=== PATIENT | male | born 1970 | race Caucasian/White ===

== ENCOUNTER → 2018-03-12 | Outpatient (CLI) | payer OTHER ==
--- NOTE | 2018-03-12 15:08 | US ---
EXAMINATION TYPE: US abdomen complete DATE OF EXAM: 03/12/2018 COMPARISON: NONE CLINICAL HISTORY: 47-year-old male R60.0Localized edema I71.2Thoracic aortic aneurysm. Thoracic aorti c aneurysm TECHNIQUE: Multiple sonographic images of the abdomen were obtained. FINDINGS: DIRECTOR OF INFECTION PREVENTION NOTES: Technical limitations due to large amount of overlying bowel content EXAM MEASUREMENTS: Liver Length: 13.3 cm Gallbladder Wall: 0.3 cm CBD: 0.4 cm Spleen: 13.9 cm Right Kidney: 11.2 x 5.6 x 4.9 cm Left Kidney: 11.8 x 5.3 x 5.5 cm Pancreas: Obscured by bowel gas Liver: appears wnl Gallbladder: no evidence of stones Evidence for sonographic Hines's sign: no CBD: appears wnl Spleen: Borderline enlarged. Right Kidney: no evidence of hydronephrosis Left Kidney: no evidence of hydronephrosis Upper IVC: wnl Abd Aorta: visualized portions appear wnl, proximal obscured by bowel IMPRESSION: 1. Borderline splenomegaly (13.9 cm). 2. Suboptimal visualization of the pancreas. Otherwise, unremarkable sonographic examination of the a bdomen.
--- NOTE | 2018-03-12 15:09 | US ---
EXAMINATION TYPE: US venous doppler duplex LE LT DATE OF EXAM: 03/12/2018 1:45 PM COMPARISON: NONE CLINICAL HISTORY: 47-year-old male R60.0Localized edema I71.2Thoracic aortic aneurysm. Intermittent l eft leg edema x 2 years SIDE PERFORMED: left TECHNIQUE: The lower extremity deep venous system is examined utilizing real time linear array sonog greg with graded compression, doppler sonography and color-flow sonography. FINDINGS: VESSELS IMAGED: External Iliac Vein (EIV) Common Femoral Vein Deep Femoral Vein Greater Saphenous Vein * Femoral Vein Popliteal Vein Small Saphenous Vein * Proximal Calf Veins (* superficial vessels) Left Leg: No evidence of DVT IMPRESSION: No evidence for DVT within the left lower extremity imaged from the groin to the upper calf.
== END | disposition home or self-care (01) ==
LOC: RADUSWWP 12:59
PROVIDERS: ATTEND Family Medicine
DX: R16.1 Splenomegaly, not elsewhere classified (principal); R60.0 Localized edema
CPT/HCPCS: 76700

== ENCOUNTER → 2020-03-24 | Outpatient (CLI) | payer OTHER ==
--- NOTE | 2020-03-24 16:54 | XR ---
EXAMINATION TYPE: XR cervical spine comp DATE OF EXAM: 03/24/2020 TECHNIQUE: Frontal, lateral, oblique, and open mouth view of the cervical spine are obtained. HISTORY: M54.12. Left side neck pain when turning head. COMPARISON: None FINDINGS: The cervical spine is visualized in its entirety from C1 through the C7 level. Normal alig nment without evidence of acute fracture or dislocation. There is mild anterior spurring and uncovert ebral hypertrophy of C3-C6. Mild disc space narrowing at C3-C4. The pre-vertebral soft tissue appears within normal limits. Neural foramina demonstrate multilevel bilateral bony encroachment worst at C4 -5 and C5-6. The dens and lateral masses are within normal limits on the open mouth view. IMPRESSION: 1. No acute fracture or dislocation is seen in the cervical spine. 2. Degenerative changes as above.
== END | disposition home or self-care (01) ==
LOC: RADXRMAIN 15:46
PROVIDERS: ATTEND Family Medicine
DX: R42 Dizziness and giddiness (principal); M47.812 Spondylosis without myelopathy or radiculopathy, cervical region
CPT/HCPCS: 72050

== ENCOUNTER → 2020-04-30 | Outpatient (CLI) | payer OTHER ==
--- NOTE | 2020-05-01 08:31 | MR ---
EXAMINATION TYPE: MR cervical spine wo con DATE OF EXAM: 04/30/2020 COMPARISON: None HISTORY: Stiffness, pain CONTRAST: Performed utilizing 0 mL intravenous Gadavist gadolinium contrast. TECHNIQUE: Multiplanar multiecho imaging on a 3.0 Melina magnet is performed through the cervical spin e. FINDINGS: The craniovertebral junction is normal. Vertebral body alignment is normal. C7-T1: No focal disc herniation or significant disc bulge is evident. No spinal canal stenosis is p resent. There is some uncovertebral joint hypertrophy contributing to left foraminal stenosis. C6-7: There is central focal bulging with moderate anterior thecal sac compression. Cord contact is e vident. Minimal cord deformity is not excluded. Disc material may extend beyond the endplate of C6 co mpatible with subligamentous herniation. Uncovertebral joint hypertrophy is present with moderate saeed ateral foraminal stenosis, greater on the right.. C5-6: There is a small central protrusion with moderate anterior thecal sac compression. This is in c lose approximation with the spinal cord. No spinal canal stenosis is evident. Uncovertebral joint hyp ertrophy is present with mild bilateral foraminal stenosis.. C4-5: No focal disc herniation or significant disc bulge is evident. No spinal canal stenosis or anjelica ral foraminal stenosis is present. C3-4: No focal disc herniation or significant disc bulge is evident. No spinal canal stenosis or anjelica ral foraminal stenosis is present. C2-3: No focal disc herniation or significant disc bulge is evident. No spinal canal stenosis or anjelica ral foraminal stenosis is present. IMPRESSIONS: 1. Subligamentous disc herniation C6-7 extending beyond the inferior endplate of C6. This has moderat e anterior thecal sac compression and some cord contact without definite cord deformity. No stenosis is present. 2. Central protrusion C5-6 with moderate anterior thecal sac compression. No AP spinal canal stenosis is present. 3. Multilevel uncovertebral joint hypertrophy contributing to foraminal narrowing discussed above.
== END | disposition home or self-care (01) ==
LOC: RADMRIMAIN 08:06
PROVIDERS: ATTEND Family Medicine
DX: M48.02 Spinal stenosis, cervical region (principal); M48.03 Spinal stenosis, cervicothoracic region; M50.222 Other cervical disc displacement at C5-C6 level
CPT/HCPCS: 72141

== ENCOUNTER → 2022-02-08 | Outpatient (CLI) | payer OTHER ==
--- NOTE | 2022-02-08 15:39 | US ---
EXAMINATION TYPE: US venous doppler duplex LE RT DATE OF EXAM: 02/08/2022 2:39 PM COMPARISON: NONE CLINICAL HISTORY: M79.661 PAIN RT LOWER LIMB, R22.41 SWELLING RT LOWER LIMB. Pain in leg. No hx of DV T. Patient does not take blood thinners. SIDE PERFORMED: Right TECHNIQUE: The lower extremity deep venous system is examined utilizing real time linear array sonog greg with graded compression, doppler sonography and color-flow sonography. VESSELS IMAGED: Common Femoral Vein Deep Femoral Vein Greater Saphenous Vein * Femoral Vein Popliteal Vein Small Saphenous Vein * Proximal Calf Veins (* superficial vessels) Right Leg: Duplicate proximal femoral vein noted. No evidence of DVT in veins imaged at this time. IMPRESSION: 1. Right lower extremity ultrasound negative for deep venous thrombosis.
== END | disposition home or self-care (01) ==
LOC: RADUSWWP 14:17
PROVIDERS: ATTEND Internal Medicine
DX: M79.661 Pain in right lower leg (principal); R22.41 Localized swelling, mass and lump, right lower limb

== ENCOUNTER → 2022-06-13 | Outpatient (CLI) | payer OTHER ==
--- NOTE | 2022-06-14 09:32 | MR ---
EXAMINATION TYPE: MR knee RT wo con DATE OF EXAM: 06/13/2022 COMPARISON: Outside right knee x-ray April 20, 2022 HISTORY: Right knee pain and swelling x 2 years, no trauma. TECHNIQUE: Multiplanar, multisequence imaging of the right knee is performed without IV contrast. FINDINGS: MEDIAL MENISCUS: Fraying and increased signal posterior horn extends to inferior articular surface. LATERAL MENISCUS: Anterior and posterior horns are intact without tear. CRUCIATE LIGAMENTS: The anterior and posterior cruciate ligaments are intact and unremarkable. COLLATERAL LIGAMENTS: The medial collateral ligament and lateral collateral ligament complex are inta ct and unremarkable. EXTENSOR MECHANISM: Visualized quadriceps and patellar tendons are intact. EFFUSION: Small to borderline moderate sized suprapatellar joint effusion. POPLITEAL CYST: Tiny amount of ill-defined fluid at level of popliteal fossa. No focal cyst. TRICOMPARTMENT SPACES: Mild tricompartment joint space loss and spurring. CARTILAGE: Focal chondromalacia patella with fissuring posterior patellar pole sagittal image 20 amanda g the medial aspect. Cartilaginous loss medial tibial femoral compartment. BONE MARROW SIGNAL: No focal abnormal marrow signal is appreciated. OTHER: No additional significant abnormality is appreciated. IMPRESSION: 1. Full-thickness tear posterior horn medial meniscus. 2. Mild to moderate tricompartment degenerative changes as detailed above. 3. Small to borderline moderate size suprapatellar joint effusion. 4. Ruptured tiny popliteal cyst suspected.
== END | disposition home or self-care (01) ==
LOC: RADMRIMAIN 18:04
PROVIDERS: ATTEND Orthopaedic Surgery
DX: S83.241A Other tear of medial meniscus, current injury, right knee, initial encounter (principal); M17.11 Unilateral primary osteoarthritis, right knee

== ENCOUNTER 2023-01-15 11:07 | Emergency (ER) | payer OTHER ==
[2023-01-15 11:11] VITALS: TEMP 97.3
[2023-01-15 11:51] LABS: Basophils % (A) 1 %; Eosinophils # (A) 0.2 k/uL (0-0.7); Eosinophils % (A) 3 %; HCT 45.7 % (39.0-53.0); HGB 16.1 gm/dL (13.0-17.5); Lymphocytes # (A) 1.6 k/uL (1.0-4.8); Lymphocytes % (A) 21 %; MCH 31.5 pg (25.0-35.0); MCHC 35.3 g/dL (31.0-37.0); MCV 89.3 fL (80.0-100.0); Mean Platelet Volume 8.1; Monocytes # (A) 0.5 k/uL (0-1.0); Monocytes % (A) 6 %; Neutrophils # (A) 5.2 k/uL (1.3-7.7); Neutrophils % (A) 68 %; Platelet Count 213 k/uL (150-450); RBC 5.12 m/uL (4.30-5.90); RDW 11.9 % (11.5-15.5); WBC 7.7 k/uL (3.8-10.6)
[2023-01-15 11:52] LABS: INR 0.9 (<1.2); Partial Thromboplastin Time 24.6 sec (22.0-30.0); Prothrombin Time 9.9 sec (9.0-12.0)
[2023-01-15 11:58] LABS: ALT 32 U/L (4-49); AST 34 U/L (17-59); African American GFR (CKD) >90 (>60 ml/min/1.73 sqM); Albumin 4.5 g/dL (3.5-5.0); Alkaline Phosphatase 95 U/L (38-126); Anion Gap 14 mmol/L; Blood Urea Nitrogen 16 mg/dL (9-20); Calcium 9.3 mg/dL (8.4-10.2); Carbon Dioxide 23 mmol/L (22-30); Chloride 101 mmol/L (98-107); Glucose 122 mg/dL (74-99); Non-African American GFR(CKD) 86 (>60 ml/min/1.73 sqM); Potassium 4.2 mmol/L (3.5-5.1); Sodium 138 mmol/L (137-145); Total Bilirubin 0.8 mg/dL (0.2-1.3); Total Protein 7.4 g/dL (6.3-8.2)
[2023-01-15] MEDS ORDERED: SODIUM CHLORIDE 0.9% 1,000 ML IV ONE (11:59)
--- NOTE | 2023-01-15 12:06 | ED ---
General Adult HPI - General Chief complaint: Chest Pain Stated complaint: Chest Pain Time Seen by Provider: 01/15/23 11:46 Source: patient, RN notes reviewed Mode of arrival: ambulatory Limitations: no limitations - History of Present Illness Initial comments: 52-year-old male with no significant past medical history presents to the emergency department with a chief complaint of near syncope. Patient reports he has had multiple bouts of feeling like he is going to pass out over the last 6 weeks. He reports last 2 days these near syncopal episodes have increased. He reports simultaneous symptoms of chest pain, dizziness, lightheadedness that will last a few seconds and will resolve on its own. He denies attempting symptoms of vision changes, vision loss, headache, cough, nausea, vomiting. He does report he is a half a pack smoker. Denies heavy alcohol use, illicit drug use. He reports that his father has atrial fibrillation - Related Data Home Medications Medication Instructions Recorded Confirmed No Known Home Medications 01/15/23 01/15/23 Allergies Allergy/AdvReac Type Severity Reaction Status Date / Time No Known Allergies Allergy Verified 01/15/23 13:25 Review of Systems ROS Statement: Those systems with pertinent positive or pertinent negative responses have been documented in the HPI. ROS Other: All systems not noted in ROS Statement are negative. Past Medical History Past Medical History: GERD/Reflux Additional Past Medical History / Comment(s): POSSIBLE DIVERTICULOSIS. Hernia, Aortic aneurysm History of Any Multi-Drug Resistant Organisms: None Reported Past Surgical History: No Surgical Hx Reported Past Anesthesia/Blood Transfusion Reactions: No Reported Reaction Additional Past Anesthesia/Blood Transfusion Reaction / Comment(s): HAS NEVER RECEIVED ANESTHESIA Past Psychological History: No Psychological Hx Reported Smoking Status: Current every day smoker Past Alcohol Use History: Occasional Past Drug Use History: None Reported - Past Family History Father Family Medical History: AFIB General Exam - General Exam Comments Initial Comments: General: Alert, in no acute distress Head: atraumatic normocephalic. Eyes PERRL, EOMI intact, mucous membranes moist Respiratory: Lungs clear to auscultation bilaterally Cardiovascular: Heart rate regular rate and rhythm Abdominal: Soft without guarding or rebound Extremities: Normal inspection with full range of motion and normal capillary refill Neuroogic: alert and oriented 3, CN II-XII intact, able to ambulate with steady gait Skin: warm dry and intact with normal color Limitations: no limitations Course Vital Signs 01/15/23 01/15/23 01/15/23 11:08 12:59 14:33 Temperature 97.3 F L Pulse Rate 92 85 73 Respiratory 20 16 18 Rate Blood Pressure 139/101 144/92 129/89 O2 Sat by Pulse 99 96 97 Oximetry - Reevaluation(s) Reevaluation #1: 01/15/23 13:43 Patient reevaluated and updated on results. Patient reports resolution of symptoms at this time. EKG Findings - EKG Comments: EKG Findings:: I interpreted the following: EKG performed at 11:15 rate 81 bpm normal sinus rhythm MD interval 151, QRS duration 90, QT/QTC 348/385 Medical Decision Making - Medical Decision Making Was pt. sent in by a medical professional or institution (FRANK Cristina, ABORIGINAL LIAISON OFFICER, urgent care, hospital, or assisted...) When possible be specific @ -[No] Did you speak to anyone other than the patient for history (EMS, parent, family, police, friend...)? What history was obtained from this source @ -[No] Did you review nursing and triage notes (agree or disagree)? Why? @ -[I reviewed and agree with nursing and triage notes] Were old charts reviewed (outside hosp., previous admission, EMS record, old EKG, old radiological studies, urgent care reports/EKG's, assisted records)? Report findings @ -[No old charts were reviewed] Differential Diagnosis (chest pain, altered mental status, abdominal pain women, abdominal pain men, vaginal bleeding, weakness, fever, dyspnea, syncope, head ache, dizziness, GI bleed, back pain, seizure, CVA, palpatations, mental health, musculoskeletal)? @ -[not applicable] EKG interpreted by me (3pts min.). @ -[As above] X-rays interpreted by me (1pt min.). @ -[None done] CT interpreted by me (1pt min.). @ -[None done] U/S interpreted by me (1pt. min.). @ -[None done] What testing was considered but not performed or refused? (CT, X-rays, U/S, labs)? Why? @ -[None] What meds were considered but not given or refused? Why? @ -[None] Did you discuss the management of the patient with other professionals (professionals i.e. , PA, ABORIGINAL LIAISON OFFICER, lab, RT, psych nurse, protective services social worker, pricing intern, t eacher, contracts officer, shoe caser)? Give summary @ -[No] Was smoking cessation discussed for >3mins.? @ -[No] Was critical care preformed (if so, how long)? @ -[No] Were there social determinants of health that impacted care today? How? (Homelessness, low income, unemployed, alcoholism, drug addiction, transportation, low edu. Level, literacy, decrease access to med. care, shelter, r ehab)? @ -[No] Was there de-escalation of care discussed even if they declined (Discuss DNR or withdrawal of care, Hospice)? DNR status @ -[No] What co-morbidities impacted this encounter? (DM, HTN, Smoking, COPD, CAD, Cance r, CVA, ARF, Chemo, Hep., AIDS, mental health diagnosis, sleep apnea, morbid obesity)? @ -[None] Was patient admitted / discharged? Hospital course, mention meds given and route, prescriptions, significant lab abnormalities, going to OR and other pertinent info. @ - -Discharged. This is a 52-year-old male who presents to the [facility] department with chest pain. Patient had a thorough history and physical exam performed while in the ED. Physical exam reveals heart rate regular rate and rhythm, lungs clear to auscultation bilaterally abdomen is soft and nontender.. Patient had lab work and imaging performed on the ED which were essentially unremarkable, occluding 2 negative troponins. I discussed the results in detail with the patient verbalized understanding and all questions were addressed. He should was given 1 L of IV fluids and reports symptomatic relief. He was encouraged to follow up with his PCP in 1-2 days. Return precautions were discussed at length. Patient discharged in stable condition. Case discussed with Dr. Rocha Herberth who agrees with plan of care Undiagnosed new problem with uncertain prognosis? @ -[No] Drug Therapy requiring intensive monitoring for toxicity (Heparin, Nitro, Insulin, Cardizem)? @ -[No] Were any procedures done? @ -[No] Diagnosis/symptom? @ -Chest Pain Acute, or Chronic, or Acute on Chronic? @ -acute Uncomplicated (without systemic symptoms) or Complicated (systemic symptoms)? @ -uncomplicated Side effects of treatment? @ -[No] Exacerbation, Progression, or Severe Exacerbation? @ -[No] Poses a threat to life or bodily function? How? (Chest pain, USA, VT, pneumonia, PE, COPD, DKA, ARF, appy, cholecystitis, CVA, Diverticulitis, Homicidal, Suicidal, threat to staff... and all critical care pts) @ -low likelihood - Lab Data Result diagrams: 01/15/23 11:20 01/15/23 11:20 Lab Results 01/15/23 01/15/23 01/15/23 Range/Units 11:20 11:20 11:20 WBC 7.7 (3.8-10.6) k/uL RBC 5.12 (4.30-5.90) m/uL Hgb 16.1 (13.0-17.5) gm/dL Hct 45.7 (39.0-53.0) % MCV 89.3 (80.0-100.0) fL MCH 31.5 (25.0-35.0) pg MCHC 35.3 (31.0-37.0) g/dL RDW 11.9 (11.5-15.5) % Plt Count 213 (150-450) k/uL MPV 8.1 Neutrophils % 68 % Lymphocytes % 21 % Monocytes % 6 % Eosinophils % 3 % Basophils % 1 % Neutrophils # 5.2 (1.3-7.7) k/uL Lymphocytes # 1.6 (1.0-4.8) k/uL Monocytes # 0.5 (0-1.0) k/uL Eosinophils # 0.2 (0-0.7) k/uL Basophils # 0.0 (0-0.2) k/uL PT 9.9 (9.0-12.0) sec INR 0.9 (<1.2) APTT 24.6 (22.0-30.0) sec Sodium 138 (137-145) mmol/L Potassium 4.2 (3.5-5.1) mmol/L Chloride 101 (98-107) mmol/L Carbon Dioxide 23 (22-30) mmol/L Anion Gap 14 mmol/L BUN 16 (9-20) mg/dL Creatinine 1.00 (0.66-1.25) mg/dL Est GFR (CKD-EPI)AfAm >90 (>60 ml/min/1.73 sqM) Est GFR (CKD-EPI)NonAf 86 (>60 ml/min/1.73 sqM) Glucose 122 H (74-99) mg/dL Calcium 9.3 (8.4-10.2) mg/dL Total Bilirubin 0.8 (0.2-1.3) mg/dL AST 34 (17-59) U/L ALT 32 (4-49) U/L Alkaline Phosphatase 95 (38-126) U/L Troponin I (0.000-0.034) ng/mL Total Protein 7.4 (6.3-8.2) g/dL Albumin 4.5 (3.5-5.0) g/dL Urine Color Urine Appearance (Clear) Urine pH (5.0-8.0) Ur Specific Twilight (1.001-1.035) Urine Protein (Negative) Urine Glucose (UA) (Negative) Urine Ketones (Negative) Urine Blood (Negative) Urine Nitrite (Negative) Urine Bilirubin (Negative) Urine Urobilinogen (<2.0) mg/dL Ur Leukocyte Esterase (Negative) 01/15/23 01/15/23 01/15/23 Range/Units 11:20 13:01 13:40 WBC (3.8-10.6) k/uL RBC (4.30-5.90) m/uL Hgb (13.0-17.5) gm/dL Hct (39.0-53.0) % MCV (80.0-100.0) fL MCH (25.0-35.0) pg MCHC (31.0-37.0) g/dL RDW (11.5-15.5) % Plt Count (150-450) k/uL MPV Neutrophils % % Lymphocytes % % Monocytes % % Eosinophils % % Basophils % % Neutrophils # (1.3-7.7) k/uL Lymphocytes # (1.0-4.8) k/uL Monocytes # (0-1.0) k/uL Eosinophils # (0-0.7) k/uL Basophils # (0-0.2) k/uL PT (9.0-12.0) sec INR (<1.2) APTT (22.0-30.0) sec Sodium (137-145) mmol/L Potassium (3.5-5.1) mmol/L Chloride (98-107) mmol/L Carbon Dioxide (22-30) mmol/L Anion Gap mmol/L BUN (9-20) mg/dL Creatinine (0.66-1.25) mg/dL Est GFR (CKD-EPI)AfAm (>60 ml/min/1.73 sqM) Est GFR (CKD-EPI)NonAf (>60 ml/min/1.73 sqM) Glucose (74-99) mg/dL Calcium (8.4-10.2) mg/dL Total Bilirubin (0.2-1.3) mg/dL AST (17-59) U/L ALT (4-49) U/L Alkaline Phosphatase (38-126) U/L Troponin I <0.012 <0.012 (0.000-0.034) ng/mL Total Protein (6.3-8.2) g/dL Albumin (3.5-5.0) g/dL Urine Color Yellow Urine Appearance Clear (Clear) Urine pH 7.0 (5.0-8.0) Ur Specific Twilight 1.018 (1.001-1.035) Urine Protein Negative (Negative) Urine Glucose (UA) Negative (Negative) Urine Ketones 1+ H (Negative) Urine Blood Negative (Negative) Urine Nitrite Negative (Negative) Urine Bilirubin Negative (Negative) Urine Urobilinogen <2.0 (<2.0) mg/dL Ur Leukocyte Esterase Negative (Negative) Disposition Clinical Impression: Dizziness, Chest pain Disposition: HOME SELF-CARE Condition: Stable Additional Instructions: Please decrease caffeine intake and increase water intake Please return to the nearest emergency department symptoms worsen or persist Is patient prescribed a controlled substance at d/c from ED?: No Referrals: None,Stated [Primary Care Provider] - 1-2 days [facility] [Provider Group] - 1-2 days Time of Disposition: 14:19
--- NOTE | 2023-01-15 12:54 | XR ---
EXAMINATION TYPE: XR chest 2V DATE OF EXAM: 01/15/2023 COMPARISON: 05/27/2017 HISTORY: 52-year-old male with chest pain TECHNIQUE: PA and lateral views FINDINGS: Heart normal size. Aorta and pulmonary vasculature within normal limits. Mild hyperinflation. No cons olidation or pleural effusion. IMPRESSION: Mild hyperinflation may relate to a depth of inspiration or underlying emphysema. Otherwise, no acute cardiopulmonary process.
[2023-01-15 13:22] LABS: Appearance,Urine Clear (Clear); Bilirubin,Urine Negative (Negative); Blood,Urine Negative (Negative); Color,Urine Yellow; Glucose,Urine (UA) Negative (Negative); Ketones,Urine 1+ (Negative); Leukocyte Esterase,Urine Negative (Negative); Nitrite,Urine Negative (Negative); Protein,Urine Negative (Negative); Specific Gravity,Urine 1.018 (1.001-1.035); Urobilinogen,Urine <2.0 mg/dL (<2.0)
[2023-01-15 14:34] VITALS: BP 129/89; PULSE 73; RESP 18
== END 2023-01-15 14:34 | disposition home or self-care (01) ==
LOC: EC 11:07
DX: R42 Dizziness and giddiness (principal); R07.9 Chest pain, unspecified; F17.200 Nicotine dependence, unspecified, uncomplicated
CPT/HCPCS: 36415; 71046; 80053; 81003; 84484; 85025; 85610; 85730; 93005; 96360; 99285

== ENCOUNTER → 2024-07-29 | Day surgery (SDC) | payer BC, OTHER ==
[~2024-07-29] MED LIST: GLYCOPYRROLATE 0.2 MG/ML 2 ML VIAL ONE; KETAMINE HCL IN 0.9 % NACL 50 MG/5 ML SYRINGE ONE; LIDOCAINE 1% (10MG/ML) FOR IV START INTRADERMA PRN; LIDOCAINE 1% INJ 10MG/ML (20 ML MDV) ONE; PROPOFOL 10 MG/ML 20 ML VIAL IV ONE
[2024-07-29] MEDS: IV FLUID CONTINUATION 1,000 ML IV ONE (09:15)
[2024-07-29] MEDS: LACTATED RINGERS 1,000 ML IV SCH (09:21)
[2024-07-29 09:23] VITALS: TEMP 97.3
--- NOTE | 2024-07-29 10:09 | P.GSHP ---
History of Present Illness H&P Date: 07/29/24 CHIEF COMPLAINT: Colon screen HISTORY OF PRESENT ILLNESS: The patient is a 53-year-old male who presents for colon screen. Lower endoscopy was offered for further evaluation and management. PAST MEDICAL HISTORY: Please see list. PAST SURGICAL HISTORY: Please see list. MEDICATIONS: Please see list. ALLERGIES: Please see list. SOCIAL HISTORY: No illicit drug use FAMILY HISTORY: No reports of Crohn disease or ulcerative colitis. REVIEW OF ORGAN SYSTEMS: CONSTITUTIONAL: No reports of fevers or chills. PHYSICAL EXAM: VITAL SIGNS: Stable GENERAL: Well-developed pleasant in no acute distress. HEENT: No scleral icterus. Extraocular movements grossly intact. Moist buccal mucosa. NECK: Supple without lymphadenopathy. CHEST: Unlabored respirations. Equal bilateral excursions. CARDIOVASCULAR: Regular rate and rhythm. Distal 2+ pulses. ABDOMEN: Soft, nontender, nondistended. MUSCULOSKELETAL: No clubbing, cyanosis, or edema. ASSESSMENT: 1. Colon screen. PLAN: 1. Recommend proceeding with a lower endoscopy Past Medical History Past Medical History: GERD/Reflux, Hypertension Additional Past Medical History / Comment(s): POSSIBLE DIVERTICULOSIS. Hernia, Aortic aneurysm History of Any Multi-Drug Resistant Organisms: None Reported Past Surgical History: No Surgical Hx Reported Additional Past Surgical History / Comment(s): colonoscopy Past Anesthesia/Blood Transfusion Reactions: No Reported Reaction Additional Past Anesthesia/Blood Transfusion Reaction / Comment(s): HAS NEVER RECEIVED ANESTHESIA Smoking Status: Current every day smoker - Past Family History Father Family Medical History: AFIB Medications and Allergies Home Medications Medication Instructions Recorded Confirmed Type Metoprolol Succinate [Toprol XL] 50 mg PO DAILY 07/27/24 07/29/24 History Allergies Allergy/AdvReac Type Severity Reaction Status Date / Time No Known Allergies Allergy Verified 07/29/24 09:18 Surgical - Exam Vital Signs Temp Pulse Resp BP Pulse Ox 97.3 F L 74 18 122/80 96 07/29/24 09:22 07/29/24 09:22 07/29/24 09:22 07/29/24 09:22 07/29/24 09:22
--- NOTE | 2024-07-29 11:20 | P.PCN ---
Date of Procedure: 07/29/24 Description of Procedure: PREOPERATIVE DIAGNOSIS: Gastroesophageal reflux disease. POSTOPERATIVE DIAGNOSIS: Gastroesophageal reflux disease with erosive esophagitis Acute gastric ulcer with bleeding Gastritis with bleeding Diaphragmatic hiatal hernia OPERATION: Esophagogastroduodenoscopy with biopsies along esophagus, antrum and duodenum SURGEON: Lilian Ronquillo MD ANESTHESIA: MAC. INDICATIONS: The patient is a 53-year-old male who presents with reflux disease. Benefits and risks of the procedure were described. Informed consent was obtained. DESCRIPTION: The patient was brought into the endoscopy suite and laid in the left lateral decubitus position. An Olympus gastroscope was passed along the posterior oropharynx down to the distal esophagus where the squamocolumnar junction was encountered at 39 cm from the incisors. The stomach was entered and no bile reflux was found. Additional findings are listed below. Biopsies with cold forceps were obtained of the antrum. The first through third portion of the duodenum was examined. Retroflexion of the scope confirmed Hill grade 3 lower esophageal valve. The squamocolumnar junction demonstrated LA grade B erosive esophagitis. The stomach was desufflated. The patient tolerated the procedure well. FINDINGS: Squamocolumnar junction 39 cm from the incisors. Diaphragmatic hiatus at 42 cm. Hiatal hernia, 3 cm, sliding-type Hill grade 3 lower esophageal valve. LA grade C erosive esophagitis. Biopsies obtained Biopsies obtained of the duodenum. Chronic gastritis with bleeding and biopsies obtained. Acute gastric ulcer, antrum 3 mm with bleeding RECOMMENDATIONS: Omeprazole 40 mg daily Quit tobacco Carafate 1 g twice daily for 2 weeks
--- NOTE | 2024-07-29 11:37 | P.PCN ---
Date of Procedure: 07/29/24 Description of Procedure: PREOPERATIVE DIAGNOSIS: Colonoscopy screening POSTOPERATIVE DIAGNOSIS: Tubular adenoma ascending colon Sigmoid diverticulosis Internal hemorrhoids, grade 2 OPERATION: Colonoscopy to the ileocecal valve and appendiceal orifice, cecum Colonoscopy with hot snare polypectomy SURGEON: Lilian Ronquillo MD. ANESTHESIA: MAC. INDICATIONS: The patient is an 53-year-old male who presents for colonoscopy screening. Benefits and risks were described and informed consent was obtained. DESCRIPTION OF PROCEDURE: The patient had undergone GoLytely prep. The patient had been brought into the operating room and laid in the left lateral decubitus position. After adequate intravenous sedation, the rectum was examined with 2% lidocaine jelly. The prostate was unremarkable. External hemorrhoids were encountered. The rectal tone was within normal limits. No lesions were palpated in the rectal vault. An Olympus colonoscope was advanced until the cecum, ileocecal valve and appendiceal orifice were clearly viewed. The prep was fair to good. Sigmoid diverticulosis was encountered. Colonic polyps were found and removed. No evidence of focal colitis was found. Retroflexion of the scope demonstrated grade 2 internal hemorrhoids without active bleeding or inflammation. The colon was desufflated. The patient had tolerated the procedure well. Withdrawal time was over 6 minutes. FINDINGS: Aronchick preparation quality scale 2+ (1-5) The cecum was completely obscured by stool Internal hemorrhoids, grade 2 External hemorrhoids, grade 2. No arteriovenous malformations. Sigmoid diverticulosis Removal of 1 polyps: - Snare polypectomy proximal ascending colon, 9 mm tubulovillous adenoma No focal colitis. RECOMMENDATIONS: Repeat colonoscopy 3 years, 2026 Recommend extended clear liquid prep Plan - Discharge Summary Discharge Rx Participant: No New Discharge Prescriptions: New Sucralfate [Carafate] 1 gm PO BID #30 tablet Omeprazole [PriLOSEC] 40 mg PO DAILY #14 cap Continue Metoprolol Succinate [Toprol XL] 50 mg PO DAILY Discharge Medication List Metoprolol Succinate [Toprol XL] 50 mg PO DAILY 07/27/24 [History] Omeprazole [PriLOSEC] 40 mg PO DAILY #14 cap 07/29/24 [Rx] Sucralfate [Carafate] 1 gm PO BID #30 tablet 07/29/24 [Rx] Follow up Appointment(s)/Referral(s): Lilian Ronquillo MD [STAFF PHYSICIAN] - 08/11/24 4:30 pm Patient Instructions/Handouts: Peptic Ulcer (DC), Hiatal Hernia (DC), Colorectal Polyps (GEN), Diverticulosis Diet (GEN) Activity/Diet/Wound Care/Special Instructions: Repeat colonoscopy 3 years, 2026 Discharge Disposition: HOME SELF-CARE
[2024-07-29 11:41] VITALS: BP 114/80; PULSE 69; RESP 16
[2024-08-01 09:28] LABS: Anabasine Urine <2.0 ng/mL (<2.0)
== END | disposition home or self-care (01) ==
LOC: ORWHC2ENDO 08:52
PROVIDERS: ATTEND Surgery Plastic and Reconstructive Surgery
DX: Z12.11 Encounter for screening for malignant neoplasm of colon (principal); D12.2 Benign neoplasm of ascending colon; K57.30 Diverticulosis of large intestine without perforation or abscess without bleeding; K64.1 Second degree hemorrhoids; K64.4 Residual hemorrhoidal skin tags; K25.0 Acute gastric ulcer with hemorrhage; K29.51 Unspecified chronic gastritis with bleeding; K31.A11 Gastric intestinal metaplasia without dysplasia, involving the antrum; K21.00 Gastro-esophageal reflux disease with esophagitis, without bleeding; K44.9 Diaphragmatic hernia without obstruction or gangrene; I10 Essential (primary) hypertension; I71.20 Thoracic aortic aneurysm, without rupture, unspecified; F17.200 Nicotine dependence, unspecified, uncomplicated; Z79.899 Other long term (current) drug therapy
CPT/HCPCS: 88305; 80323; 45385; 43239; J2003; J2704; J1596